=== PATIENT | female | born 1960 | race Caucasian/White ===

== ENCOUNTER → 2017-04-02 | Outpatient (CLI) | payer OTHER ==
[~2017-04-02] MED LIST: ABAC300; ALBU90OI INH; AMOX500 PO; AZIT250 PO; Adipex-P37.5 MG PO; Albuterol17 G1 INH; BENZ100A PO; BUPR75 PO; Bactrim Ds Tab1 EACH PO; Benadryl 50 mg50 MG PO; CEPH500 PO; CHLO25B PO; Cipro500 MG PO; EQUATE; FAMO20 PO; FERR325 PO; FLUO20 PO; Ferrous Sulfat324 MG PO; GUAI600T33 PO; HYDACE5 PO; Hair, Skin & N1 EACH PO; Hydrochlorothia25 MG PO; LAMO100; LITH300ER PO; MOMENI; Monodox100 MG PO; Naprosyn500 MG PO; Norco 5-325 Ta1 EACH PO; OMEP20ER PO; ONDA4ODT MM; OTC SINUS MED; Omeprazole20 M1 PO; PENVK250 PO; PROCODE120 PO; Percocet 5-3251 EACH PO; Prednisone20 MG PO; Prilosec Otc20 MG PO; Prozac20 MG PO; Pyridium200 MG PO; SPACE CHAMBER1 EACH MC; Silvadene20 GM TOP; TOPI25 PO; TRAM50 PO; TRAZ100 PO; TRAZ150T57 PO; TRAZ50 PO; Tamiflu75 MG PO; Tussionex Penn480 ML PO; VITS AND SUPPS; Zithromax250 MG PO; [UNRECOGNIZED DRUG - REMARK]
[2017-04-02 13:34] LABS: Source, Urine Clean Catch
[2017-04-02 16:35] LABS: Appearance, Urine Clear (Clear); Bilirubin, Urine Neg (Neg); Blood, Urine 1+ (Neg); Color, Urine Yellow (P-Yellow); Glucose Qualitative, Urine Neg (Neg); Ketones, Urine Neg (Neg); Leukocyte Esterase, Urine Neg (Neg); Nitrite, Urine Neg (Neg); Protein, Urine Neg (Neg); Urobilinogen, Urine NORM (Normal)
[2017-04-02 16:54] LABS: Bacteria Few /hpf; Squamous Epithelial Cells Few /hpf (Few); White Blood Cells, Urine 0-2 /hpf (0-5)
== END ==
LOC: LAB 13:31
PROVIDERS: Nurse Practitioner Family
DX: R30.0 Dysuria (principal)
CPT/HCPCS: 81001

== ENCOUNTER 2017-04-20 18:21 | Emergency (ER) | payer OTHER ==
[~2017-04-20] VITALS: Ht 162.6 cm; Wt 105.2 kg
[~2017-04-20 18:21] MED LIST changes: -CHLO25B PO; -EQUATE; -Ferrous Sulfat324 MG PO; -LAMO100; -ONDA4ODT MM; -Omeprazole20 M1 PO; -Prozac20 MG PO; -TOPI25 PO; -TRAZ100 PO
[2017-04-20 21:40] LABS: Influenza A Positive (NEGATIVE); Influenza B Negative (NEGATIVE)
[2017-04-20] MEDS ORDERED: Tamiflu75 MG PO (22:03)
[2018-02-17] MEDS ORDERED: TRAZ100 PO (07:18)
[2018-02-17] MEDS ORDERED: ONDA4ODT MM (07:38)
== END 2017-04-20 22:09 | disposition home or self-care (01) ==
LOC: ER 18:21
PROVIDERS: Physician Assistant
DX: J10.1 Influenza due to other identified influenza virus with other respiratory manifestations (principal); Z79.899 Other long term (current) drug therapy; F17.200 Nicotine dependence, unspecified, uncomplicated
CPT/HCPCS: 87804; 99283

== ENCOUNTER → 2017-05-02 | Outpatient (CLI) | payer OTHER ==
[2017-05-02 13:08] LABS: Influenza A Negative (NEGATIVE); Influenza B Negative (NEGATIVE)
== END ==
LOC: LAB 08:15 → LAB SHORT 08:15
PROVIDERS: Nurse Practitioner Family
DX: J09.X2 Influenza due to identified novel influenza A virus with other respiratory manifestations (principal); R06.00 Dyspnea, unspecified
CPT/HCPCS: 87804

== ENCOUNTER 2017-11-25 13:26 | Observation (INO) | payer OTHER ==
[~2017-11-25] VITALS: Ht 162.6 cm; Wt 108.9 kg
[2017-11-25] MEDS ORDERED: Ferrous Sulfat324 MG PO (13:48)
[2017-11-25] MEDS ORDERED: LAMO100 (13:49)
[2017-11-25] MEDS ORDERED: Omeprazole20 M1 PO (13:49)
[2017-11-25] MEDS ORDERED: CHLO25B PO (13:49)
[2017-11-25] MEDS ORDERED: Prozac20 MG PO (13:49)
[2017-11-25] MEDS ORDERED: TOPI25 PO (13:49)
[2017-11-25] MEDS ORDERED: EQUATE (13:50)
[2017-11-25 15:06] LABS: Source, Urine Clean Catch
[2017-11-25 15:11] LABS: Appearance, Urine Turbid (Clear); Bilirubin, Urine Neg (Neg); Blood, Urine 2+ (Neg); Color, Urine Yellow (P-Yellow); Glucose Qualitative, Urine Neg (Neg); Ketones, Urine Neg (Neg); Leukocyte Esterase, Urine 1+ (Neg); Nitrite, Urine Neg (Neg); Protein, Urine Neg (Neg); Urobilinogen, Urine NORM (Normal)
[2017-11-25 15:13] LABS: BASOPHILS ABSOLUTE AUTO 0.06 K/mm3 (0.00-0.23); BASOPHILS PERCENT AUTO 0 % (0-2); EOSINOPHILS ABSOLUTE AUTO 0.24 K/mm3 (0.00-0.68); EOSINOPHILS PERCENT AUTO 2 % (0-6); Hematocrit 44.8 % (33.0-51.0); Hemoglobin 14.8 g/dL (11.5-16.0); IMMATURE GRAN ABSOLUTE AUTO 0.09 K/mm3 (0.00-0.10); IMMATURE GRAN PERCENT AUTO 1 % (0-1); LYMPHOCYTES ABSOLUTE AUTO 2.62 K/mm3 (0.84-5.20); LYMPHOCYTES PERCENT AUTO 20 % (21-46); MONOCYTES ABSOLUTE AUTO 0.88 K/mm3 (0.16-1.47); MONOCYTES PERCENT AUTO 7 % (4-13); Mean Corpuscular HGB 29.2 pg (26.0-34.0); Mean Corpuscular Volume 88 fL (80-100); Mean Platelet Volume 11.1 fL (9.1-12.4); NEUTROPHILS ABSOLUTE AUTO 9.55 K/mm3 (1.96-9.15); NEUTROPHILS PERCENT AUTO 71 % (41-73); Platelet Count 260 K/mm3 (150-400); RDW Coefficient Variation 13.6 % (11.7-14.2); Red Blood Cell Count 5.07 M/mm3 (3.80-5.20); White Blood Cell Count 13.44 K/mm3 (4.00-11.30)
[2017-11-25 15:32] LABS: Alanine Aminotransfer (ALT/SGP 27 U/L (12-78); Albumin, Blood 3.4 g/dL (3.4-5.0); Albumin/Globulin Ratio 0.9 (0.8-1.8); Alk Phos 72 U/L (50-136); Anion Gap 8 mmol/L (6-16); Aspartate Aminotrans (AST/SGOT 20 U/L (12-37); Bilirubin, Total 0.2 mg/dL (0.1-1.0); Blood Urea Nitrogen 21 mg/dL (8-24); Bun/Creatinine Ratio 26.5 (12.0-20.0); CO2, Blood 28 mmol/L (21-32); Calcium, Blood 8.6 mg/dL (8.5-10.1); Chloride, Blood 106 mmol/L (98-108); Creatinine, Blood 0.79 mg/dL (0.40-1.00); Ethanol (Alcohol), Blood, Med <3 mg/dL; Globulin, Blood 3.6 g/dL (2.2-4.0); Glomerular Filtration Rate >60 (60-); Glucose, Blood 114 mg/dL (70-99); Potassium, Blood 3.1 mmol/L (3.5-5.5); Salicylate <1.7 mg/dL (2.8-20.0); Sodium, Blood 142 mmol/L (136-145); Thyroxine (T4) 10.7 ug/dL (4.8-13.9)
[2017-11-25 15:38] LABS: Bacteria Many /hpf; Squamous Epithelial Cells Many /hpf (Few)
[2017-11-25 15:42] LABS: Acetaminophen, Random <2.0 ug/mL (10.0-30.0)
[2017-11-25 16:00] LABS: U Amphetamine Screen Not Detected; U Barbituate Screen Not Detected; U Benzodiazapine Screen DETECTED; U Buprenorphine Screen Not Detected; U Cannabinoids Screen DETECTED; U Cocaine Screen Not Detected; U Methadone Screen Not Detected; U Methamphetamine Screen Not Detected; U Opiates Screen Not Detected; U Oxycodone Screen Not Detected; U Phencyclidine Screen Not Detected; U Propoxyphene Screen Not Detected
[2017-11-27] MEDS ORDERED: CEPH500 PO (11:23)
== END 2017-11-27 11:45 | disposition home or self-care (01) ==
LOC: ER 13:26 → EOR 13:27
PROVIDERS: Emergency Medicine
DX: R45.851 Suicidal ideations (principal); N39.0 Urinary tract infection, site not specified; E87.6 Hypokalemia; F43.10 Post-traumatic stress disorder, unspecified; F32.9 Major depressive disorder, single episode, unspecified; D64.9 Anemia, unspecified; F17.210 Nicotine dependence, cigarettes, uncomplicated; Z95.1 Presence of aortocoronary bypass graft; Z79.899 Other long term (current) drug therapy
CPT/HCPCS: 36415; 80053; 81001; 81025; 84436; 84443; 85025; 87086; 93005; 93010; 99285-25; G0378; G0480; Q3014

== ENCOUNTER 2018-08-27 03:30 | Emergency (ER) | payer OTHER ==
[~2018-08-27] VITALS: Ht 162.6 cm; Wt 104.3 kg
[~2018-08-27 03:30] MED LIST changes: +CHLO25B PO; +EQUATE; +Ferrous Sulfat324 MG PO; +LAMO100; +ONDA4ODT MM; +Omeprazole20 M1 PO; +Prozac20 MG PO; +TOPI25 PO; +TRAZ100 PO
== END 2018-08-27 05:02 | disposition home or self-care (01) ==
LOC: ER 03:30
DX: S16.1XXA Strain of muscle, fascia and tendon at neck level, initial encounter (principal); S00.83XA Contusion of other part of head, initial encounter; S40.011A Contusion of right shoulder, initial encounter; W10.9XXA Fall (on) (from) unspecified stairs and steps, initial encounter; D64.9 Anemia, unspecified; F43.10 Post-traumatic stress disorder, unspecified; F32.9 Major depressive disorder, single episode, unspecified; F17.210 Nicotine dependence, cigarettes, uncomplicated; Z79.899 Other long term (current) drug therapy
CPT/HCPCS: 70450; 72125; 73030; 99284-25

== ENCOUNTER → 2018-09-26 | Outpatient (CLI) | payer OTHER ==
[~2018-09-26] MED LIST changes: +LIDO700A20 TOP; +Neurontin 100100 MG; +Robaxin-750750 MG PO; +Robaxin750 MG
[2018-09-26 11:31] LABS: Appearance, Urine Clear (Clear); Bilirubin, Urine Neg (Neg); Blood, Urine 2+ (Neg); Color, Urine Yellow (P-Yellow); Glucose Qualitative, Urine Neg (Neg); Ketones, Urine Neg (Neg); Leukocyte Esterase, Urine Neg (Neg); Nitrite, Urine Neg (Neg); Protein, Urine Neg (Neg); Specific Gravity, Urine 1.025 (1.003-1.022); Urobilinogen, Urine NORM (Normal)
[2018-09-26 11:40] LABS: Bacteria Rare /hpf; Squamous Epithelial Cells Few /hpf (Few); White Blood Cells, Urine 0-2 /hpf (0-5)
== END | disposition home or self-care (01) ==
LOC: LAB 11:11 → LAB SHORT 11:11
PROVIDERS: Nurse Practitioner Family
DX: R31.29 Other microscopic hematuria (principal)
CPT/HCPCS: 81001

== ENCOUNTER 2018-10-19 02:51 | Emergency (ER) | payer OTHER ==
[~2018-10-19 02:51] MED LIST changes: -LIDO700A20 TOP; -Neurontin 100100 MG; -Robaxin-750750 MG PO; -Robaxin750 MG
== END 2018-10-19 04:12 | disposition left against medical advice (07) ==
LOC: ER 02:51
DX: Z53.21 Procedure and treatment not carried out due to patient leaving prior to being seen by health care provider (principal)

== ENCOUNTER → 2018-10-27 | Outpatient (CLI) | payer OTHER ==
[~2018-10-27] MED LIST changes: +LIDO700A20 TOP; +Neurontin 100100 MG; +Robaxin-750750 MG PO; +Robaxin750 MG
[2018-10-27 19:26] LABS: BASOPHILS ABSOLUTE AUTO 0.04 K/mm3 (0.00-0.23); BASOPHILS PERCENT AUTO 0 % (0-2); EOSINOPHILS ABSOLUTE AUTO 0.35 K/mm3 (0.00-0.68); EOSINOPHILS PERCENT AUTO 3 % (0-6); Hemoglobin 13.6 g/dL (11.5-16.0); IMMATURE GRAN ABSOLUTE AUTO 0.05 K/mm3 (0.00-0.10); IMMATURE GRAN PERCENT AUTO 0 % (0-1); LYMPHOCYTES ABSOLUTE AUTO 2.63 K/mm3 (0.84-5.20); LYMPHOCYTES PERCENT AUTO 23 % (21-46); MONOCYTES ABSOLUTE AUTO 0.95 K/mm3 (0.16-1.47); MONOCYTES PERCENT AUTO 8 % (4-13); Mean Corpuscular HGB 28.5 pg (26.0-34.0); Mean Corpuscular HGB Conc 31.6 g/dL (31.5-36.5); NEUTROPHILS ABSOLUTE AUTO 7.44 K/mm3 (1.96-9.15); NEUTROPHILS PERCENT AUTO 65 % (41-73); Platelet Count 280 K/mm3 (150-400); RDW Coefficient Variation 14.7 % (11.7-14.2); RDW Standard Deviation 48.3 fL (35.1-46.3); Red Blood Cell Count 4.77 M/mm3 (3.80-5.20); White Blood Cell Count 11.46 K/mm3 (4.00-11.30)
[2018-10-27 19:28] LABS: Mean Corpuscular Volume 90 fL (80-100)
== END | disposition home or self-care (01) ==
LOC: LAB SHORT 19:10 → LAB 19:10
PROVIDERS: Family Medicine
DX: R10.30 Lower abdominal pain, unspecified (principal); R31.9 Hematuria, unspecified
CPT/HCPCS: 85025; 87086

== ENCOUNTER → 2018-12-14 | Outpatient (CLI) | payer OTHER ==
[2018-12-14 14:32] LABS: BASOPHILS ABSOLUTE AUTO 0.04 K/mm3 (0.00-0.23); BASOPHILS PERCENT AUTO 0 % (0-2); EOSINOPHILS ABSOLUTE AUTO 0.28 K/mm3 (0.00-0.68); EOSINOPHILS PERCENT AUTO 3 % (0-6); Hematocrit 41.1 % (33.0-51.0); IMMATURE GRAN ABSOLUTE AUTO 0.04 K/mm3 (0.00-0.10); IMMATURE GRAN PERCENT AUTO 0 % (0-1); LYMPHOCYTES ABSOLUTE AUTO 1.83 K/mm3 (0.84-5.20); LYMPHOCYTES PERCENT AUTO 17 % (21-46); MONOCYTES ABSOLUTE AUTO 0.72 K/mm3 (0.16-1.47); MONOCYTES PERCENT AUTO 7 % (4-13); Mean Corpuscular HGB 28.1 pg (26.0-34.0); Mean Corpuscular HGB Conc 31.6 g/dL (31.5-36.5); Mean Corpuscular Volume 89 fL (80-100); Mean Platelet Volume 11.8 fL (9.1-12.4); NEUTROPHILS ABSOLUTE AUTO 8.19 K/mm3 (1.96-9.15); NEUTROPHILS PERCENT AUTO 74 % (41-73); Platelet Count 266 K/mm3 (150-400); RDW Coefficient Variation 15.1 % (11.7-14.2); Red Blood Cell Count 4.63 M/mm3 (3.80-5.20)
[2018-12-14 14:36] LABS: Bun/Creatinine Ratio 16.5 (12.0-20.0); Creatinine, Blood 1.03 mg/dL (0.40-1.00); Potassium, Blood 4.2 mmol/L (3.5-5.5)
== END | disposition home or self-care (01) ==
LOC: LAB SHORT 14:26 → LAB EV 14:26
PROVIDERS: Physician Assistant Surgical
DX: R06.02 Shortness of breath (principal); R06.00 Dyspnea, unspecified
CPT/HCPCS: 80048; 83880; 85025

== ENCOUNTER → 2018-12-18 | Outpatient (CLI) | payer OTHER ==
[2018-12-18 11:58] LABS: BASOPHILS ABSOLUTE AUTO 0.04 K/mm3 (0.00-0.23); BASOPHILS PERCENT AUTO 0 % (0-2); EOSINOPHILS ABSOLUTE AUTO 0.16 K/mm3 (0.00-0.68); EOSINOPHILS PERCENT AUTO 2 % (0-6); Hematocrit 39.5 % (33.0-51.0); Hemoglobin 12.7 g/dL (11.5-16.0); IMMATURE GRAN ABSOLUTE AUTO 0.05 K/mm3 (0.00-0.10); IMMATURE GRAN PERCENT AUTO 1 % (0-1); LYMPHOCYTES ABSOLUTE AUTO 1.05 K/mm3 (0.84-5.20); LYMPHOCYTES PERCENT AUTO 10 % (21-46); MONOCYTES ABSOLUTE AUTO 0.36 K/mm3 (0.16-1.47); MONOCYTES PERCENT AUTO 3 % (4-13); Mean Corpuscular HGB 28.2 pg (26.0-34.0); Mean Corpuscular HGB Conc 32.2 g/dL (31.5-36.5); Mean Corpuscular Volume 88 fL (80-100); Mean Platelet Volume 11.3 fL (9.1-12.4); NEUTROPHILS ABSOLUTE AUTO 8.88 K/mm3 (1.96-9.15); NEUTROPHILS PERCENT AUTO 84 % (41-73); Platelet Count 271 K/mm3 (150-400); RDW Coefficient Variation 14.9 % (11.7-14.2); Red Blood Cell Count 4.51 M/mm3 (3.80-5.20); White Blood Cell Count 10.54 K/mm3 (4.00-11.30)
[2018-12-18 12:02] LABS: Anion Gap 7 mmol/L (6-16); Blood Urea Nitrogen 19 mg/dL (8-24); Bun/Creatinine Ratio 21.8 (12.0-20.0); CO2, Blood 27 mmol/L (21-32); Calcium, Blood 8.4 mg/dL (8.5-10.1); Chloride, Blood 108 mmol/L (98-108); Creatinine, Blood 0.87 mg/dL (0.40-1.00); Glomerular Filtration Rate >60 (60-); Glucose, Blood 119 mg/dL (70-99); Potassium, Blood 3.8 mmol/L (3.5-5.5); Sodium, Blood 142 mmol/L (136-145)
== END | disposition home or self-care (01) ==
LOC: LAB SHORT 11:53 → LAB EV 11:53
PROVIDERS: Physician Assistant Surgical
DX: R06.02 Shortness of breath (principal)
CPT/HCPCS: 80048; 85025; 85379

== ENCOUNTER 2019-01-06 20:28 | Emergency (ER) | payer OTHER ==
[~2019-01-06] VITALS: Ht 162.6 cm; Wt 108.0 kg
[~2019-01-06 20:28] MED LIST changes: -LIDO700A20 TOP; -Neurontin 100100 MG; -Robaxin-750750 MG PO; -Robaxin750 MG
[2019-01-06 22:52] LABS: Source, Urine Clean Catch
[2019-01-06 22:53] LABS: Bilirubin, Urine Neg (Neg); Blood, Urine Neg (Neg); Glucose Qualitative, Urine Neg (Neg); Ketones, Urine 1+ (Neg); Leukocyte Esterase, Urine 1+ (Neg); Nitrite, Urine Neg (Neg); Protein, Urine 1+ (Neg); Specific Gravity, Urine 1.025 (1.003-1.022); Urobilinogen, Urine 1+ (Normal)
[2019-01-06 22:54] LABS: Appearance, Urine Hazy (Clear); Color, Urine Yellow (P-Yellow)
[2019-01-06 23:04] LABS: Bacteria Few /hpf; Mucus Light (0-Heavy); Red Blood Cells, Urine 0-2 /hpf (0-2); Squamous Epithelial Cells Mod /hpf (Few)
[2019-01-06] MEDS ORDERED: Robaxin-750750 MG PO (23:31)
[2019-01-06] MEDS ORDERED: LIDO700A20 TOP (23:34)
== END 2019-01-06 23:40 | disposition home or self-care (01) ==
LOC: ER 20:28
PROVIDERS: Physician Assistant
DX: M54.16 Radiculopathy, lumbar region (principal); Z79.899 Other long term (current) drug therapy; D64.9 Anemia, unspecified; F32.9 Major depressive disorder, single episode, unspecified; F43.10 Post-traumatic stress disorder, unspecified; F17.200 Nicotine dependence, unspecified, uncomplicated
CPT/HCPCS: 72100; 81001; 87086; 99283-25; J1100

== ENCOUNTER 2019-01-09 14:22 | Emergency (ER) | payer OTHER ==
[~2019-01-09] VITALS: Ht 162.6 cm; Wt 108.9 kg
[~2019-01-09 14:22] MED LIST changes: +LIDO700A20 TOP; +Robaxin-750750 MG PO
[2019-01-09] MEDS ORDERED: Neurontin 100100 MG (14:46)
[2019-01-09] MEDS ORDERED: Robaxin750 MG (14:46)
[2019-01-09] MEDS ORDERED: Norco 5-325 Ta1 EACH PO (14:51)
== END 2019-01-09 14:55 | disposition home or self-care (01) ==
LOC: ER 14:22
DX: M54.41 Lumbago with sciatica, right side (principal); F32.9 Major depressive disorder, single episode, unspecified; F17.210 Nicotine dependence, cigarettes, uncomplicated; Z79.899 Other long term (current) drug therapy
CPT/HCPCS: 99282

== ENCOUNTER 2019-02-17 06:53 | Emergency (ER) | payer OTHER ==
[~2019-02-17] VITALS: Ht 162.6 cm; Wt 108.9 kg
[~2019-02-17 06:53] MED LIST changes: +Neurontin 100100 MG; +Robaxin750 MG
[2019-02-17] MEDS ORDERED: VITAMIN D31000 UNI3 PO (07:16)
[2019-02-17 07:56] LABS: BASOPHILS ABSOLUTE AUTO 0.05 K/mm3 (0.00-0.23); BASOPHILS PERCENT AUTO 1 % (0-2); EOSINOPHILS ABSOLUTE AUTO 0.27 K/mm3 (0.00-0.68); EOSINOPHILS PERCENT AUTO 3 % (0-6); Hemoglobin 10.9 g/dL (11.5-16.0); IMMATURE GRAN ABSOLUTE AUTO 0.03 K/mm3 (0.00-0.10); IMMATURE GRAN PERCENT AUTO 0 % (0-1); LYMPHOCYTES PERCENT AUTO 16 % (21-46); MONOCYTES ABSOLUTE AUTO 0.59 K/mm3 (0.16-1.47); MONOCYTES PERCENT AUTO 6 % (4-13); Mean Corpuscular HGB Conc 29.5 g/dL (31.5-36.5); Mean Corpuscular Volume 85 fL (80-100); Mean Platelet Volume 11.4 fL (9.1-12.4); NEUTROPHILS PERCENT AUTO 75 % (41-73); Platelet Count 293 K/mm3 (150-400); RDW Coefficient Variation 14.3 % (11.7-14.2); RDW Standard Deviation 44.5 fL (35.1-46.3); Red Blood Cell Count 4.36 M/mm3 (3.80-5.20); White Blood Cell Count 9.64 K/mm3 (4.00-11.30)
[2019-02-17 08:14] LABS: Alanine Aminotransfer (ALT/SGP 22 U/L (12-78); Albumin, Blood 3.3 g/dL (3.4-5.0); Albumin/Globulin Ratio 1.1 (0.8-1.8); Alk Phos 63 U/L (50-136); Anion Gap 6 mmol/L (6-16); Aspartate Aminotrans (AST/SGOT 15 U/L (12-37); Bilirubin, Total 0.2 mg/dL (0.1-1.0); Blood Urea Nitrogen 22 mg/dL (8-24); Bun/Creatinine Ratio 31.7 (12.0-20.0); CO2, Blood 27 mmol/L (21-32); Calcium, Blood 8.9 mg/dL (8.5-10.1); Chloride, Blood 110 mmol/L (98-108); Creatinine, Blood 0.69 mg/dL (0.40-1.00); Globulin, Blood 3.1 g/dL (2.2-4.0); Glomerular Filtration Rate >60 (60-); Glucose, Blood 94 mg/dL (70-99); Potassium, Blood 4.1 mmol/L (3.5-5.5); Sodium, Blood 143 mmol/L (136-145); Total Protein, Blood 6.4 g/dL (6.4-8.2)
[2019-02-17 08:22] LABS: Source, Urine Clean Catch
[2019-02-17 08:26] LABS: Bilirubin, Urine Neg (Neg); Blood, Urine Neg (Neg); Glucose Qualitative, Urine Neg (Neg); Ketones, Urine Neg (Neg); Leukocyte Esterase, Urine Neg (Neg); Nitrite, Urine Neg (Neg); Protein, Urine Neg (Neg); Urobilinogen, Urine NORM (Normal); pH, Urine 6.5 (5.0-8.0)
[2019-02-17 08:37] LABS: Appearance, Urine Clear (Clear); Color, Urine Yellow (P-Yellow)
[2019-02-17] MEDS ORDERED: ONDA4ODT MM (09:31)
[2019-02-17] MEDS ORDERED: MOTION RELIEF25 MG PO (09:31)
== END 2019-02-17 10:00 | disposition home or self-care (01) ==
LOC: ER 06:53
PROVIDERS: Emergency Medicine
DX: H81.10 Benign paroxysmal vertigo, unspecified ear (principal); H61.23 Impacted cerumen, bilateral; Z79.899 Other long term (current) drug therapy
CPT/HCPCS: 36415; 70450; 80053; 81003; 85025; 93005; 93010; 96374; 99284-25; J2405

== ENCOUNTER 2019-04-06 13:04 | Emergency (ER) | payer OTHER ==
[~2019-04-06] VITALS: Ht 162.6 cm; Wt 108.4 kg
[~2019-04-06 13:04] MED LIST changes: +MOTION RELIEF25 MG PO; +VITAMIN D31000 UNI3 PO
[2019-04-06 15:23] LABS: Source, Urine Clean Catch
[2019-04-06 15:29] LABS: Bilirubin, Urine Neg (Neg); Blood, Urine 2+ (Neg); Glucose Qualitative, Urine Neg (Neg); Ketones, Urine Neg (Neg); Leukocyte Esterase, Urine Neg (Neg); Nitrite, Urine Neg (Neg); Protein, Urine Neg (Neg); Specific Gravity, Urine 1.025 (1.003-1.022); Urobilinogen, Urine NORM (Normal)
[2019-04-06 15:29] LABS: BASOPHILS ABSOLUTE AUTO 0.04 K/mm3 (0.00-0.23); BASOPHILS PERCENT AUTO 0 % (0-2); EOSINOPHILS ABSOLUTE AUTO 0.32 K/mm3 (0.00-0.68); EOSINOPHILS PERCENT AUTO 2 % (0-6); Hematocrit 41.8 % (33.0-51.0); Hemoglobin 12.2 g/dL (11.5-16.0); IMMATURE GRAN ABSOLUTE AUTO 0.07 K/mm3 (0.00-0.10); IMMATURE GRAN PERCENT AUTO 1 % (0-1); LYMPHOCYTES ABSOLUTE AUTO 1.38 K/mm3 (0.84-5.20); LYMPHOCYTES PERCENT AUTO 10 % (21-46); MONOCYTES ABSOLUTE AUTO 0.92 K/mm3 (0.16-1.47); MONOCYTES PERCENT AUTO 7 % (4-13); Mean Corpuscular HGB 25.9 pg (26.0-34.0); Mean Corpuscular HGB Conc 29.2 g/dL (31.5-36.5); Mean Corpuscular Volume 89 fL (80-100); Mean Platelet Volume 11.8 fL (9.1-12.4); NEUTROPHILS PERCENT AUTO 80 % (41-73); Platelet Count 286 K/mm3 (150-400); RDW Coefficient Variation 18.1 % (11.7-14.2); RDW Standard Deviation 58.8 fL (35.1-46.3); Red Blood Cell Count 4.71 M/mm3 (3.80-5.20); White Blood Cell Count 13.63 K/mm3 (4.00-11.30)
[2019-04-06 15:45] LABS: Appearance, Urine Clear (Clear); Color, Urine Yellow (P-Yellow); U Amphetamine Screen Not Detected; U Barbituate Screen Not Detected; U Benzodiazapine Screen Not Detected; U Buprenorphine Screen Not Detected; U Cannabinoids Screen Not Detected; U Cocaine Screen Not Detected; U Methadone Screen Not Detected; U Methamphetamine Screen DETECTED; U Opiates Screen Not Detected; U Oxycodone Screen Not Detected; U Phencyclidine Screen Not Detected; U Propoxyphene Screen Not Detected
[2019-04-06 15:46] LABS: Acetaminophen, Random <2.0 ug/mL (10.0-30.0); Alanine Aminotransfer (ALT/SGP 24 U/L (12-78); Albumin, Blood 3.4 g/dL (3.4-5.0); Albumin/Globulin Ratio 1.1 (0.8-1.8); Alk Phos 74 U/L (50-136); Anion Gap 7 mmol/L (6-16); Aspartate Aminotrans (AST/SGOT 12 U/L (12-37); Bilirubin, Total 0.2 mg/dL (0.1-1.0); Blood Urea Nitrogen 16 mg/dL (8-24); Bun/Creatinine Ratio 24.1 (12.0-20.0); CO2, Blood 25 mmol/L (21-32); Calcium, Blood 8.8 mg/dL (8.5-10.1); Chloride, Blood 113 mmol/L (98-108); Creatinine, Blood 0.66 mg/dL (0.40-1.00); Ethanol (Alcohol), Blood, Med <3 mg/dL; Globulin, Blood 3.2 g/dL (2.2-4.0); Glomerular Filtration Rate >60 (60-); Glucose, Blood 107 mg/dL (70-99); Potassium, Blood 3.6 mmol/L (3.5-5.5); Salicylate <1.7 mg/dL (2.8-20.0); Sodium, Blood 145 mmol/L (136-145); Thyroxine (T4) 11.1 ug/dL (4.8-13.9); Total Protein, Blood 6.6 g/dL (6.4-8.2)
[2019-04-06 15:46] LABS: Bacteria Few /hpf; Squamous Epithelial Cells Few /hpf (Few); White Blood Cells, Urine 0-2 /hpf (0-5)
== END 2019-04-06 15:55 | disposition home or self-care (01) ==
LOC: ER 13:04
PROVIDERS: Emergency Medicine
DX: F32.9 Major depressive disorder, single episode, unspecified (principal); G89.29 Other chronic pain; F43.10 Post-traumatic stress disorder, unspecified; Z86.19 Personal history of other infectious and parasitic diseases; Z87.891 Personal history of nicotine dependence
CPT/HCPCS: 36415; 80053; 81001; 84436; 84443; 85025; 99285; G0480

== ENCOUNTER 2019-04-08 11:48 | Emergency (ER) | payer OTHER ==
[~2019-04-08] VITALS: Ht 162.6 cm; Wt 108.4 kg
[2019-04-08 13:18] LABS: BASOPHILS ABSOLUTE AUTO 0.06 K/mm3 (0.00-0.23); BASOPHILS PERCENT AUTO 1 % (0-2); EOSINOPHILS ABSOLUTE AUTO 0.31 K/mm3 (0.00-0.68); EOSINOPHILS PERCENT AUTO 3 % (0-6); Hematocrit 41.6 % (33.0-51.0); Hemoglobin 12.1 g/dL (11.5-16.0); IMMATURE GRAN ABSOLUTE AUTO 0.04 K/mm3 (0.00-0.10); IMMATURE GRAN PERCENT AUTO 0 % (0-1); LYMPHOCYTES ABSOLUTE AUTO 1.21 K/mm3 (0.84-5.20); LYMPHOCYTES PERCENT AUTO 12 % (21-46); MONOCYTES ABSOLUTE AUTO 0.56 K/mm3 (0.16-1.47); MONOCYTES PERCENT AUTO 5 % (4-13); Mean Corpuscular HGB 25.7 pg (26.0-34.0); Mean Corpuscular HGB Conc 29.1 g/dL (31.5-36.5); Mean Corpuscular Volume 89 fL (80-100); Mean Platelet Volume 12.2 fL (9.1-12.4); NEUTROPHILS ABSOLUTE AUTO 8.32 K/mm3 (1.96-9.15); NEUTROPHILS PERCENT AUTO 79 % (41-73); Platelet Count 270 K/mm3 (150-400); RDW Coefficient Variation 18.1 % (11.7-14.2); RDW Standard Deviation 59.1 fL (35.1-46.3)
[2019-04-08 13:45] LABS: Alanine Aminotransfer (ALT/SGP 25 U/L (12-78); Albumin, Blood 3.4 g/dL (3.4-5.0); Albumin/Globulin Ratio 1.1 (0.8-1.8); Alk Phos 75 U/L (50-136); Anion Gap 5 mmol/L (6-16); Aspartate Aminotrans (AST/SGOT 12 U/L (12-37); Bilirubin, Total 0.3 mg/dL (0.1-1.0); Blood Urea Nitrogen 15 mg/dL (8-24); Bun/Creatinine Ratio 22.7 (12.0-20.0); CO2, Blood 28 mmol/L (21-32); Calcium, Blood 9.1 mg/dL (8.5-10.1); Chloride, Blood 110 mmol/L (98-108); Creatinine, Blood 0.66 mg/dL (0.40-1.00); Glomerular Filtration Rate >60 (60-); Glucose, Blood 83 mg/dL (70-99); Potassium, Blood 4.1 mmol/L (3.5-5.5); Sodium, Blood 143 mmol/L (136-145); Total Protein, Blood 6.4 g/dL (6.4-8.2); Troponin I <0.015 ng/mL (0.000-0.040)
[2019-04-08] MEDS ORDERED: FERSU300 (13:48)
[2019-04-08] MEDS ORDERED: Prednisone20 MG PO (15:50)
== END 2019-04-08 15:55 | disposition home or self-care (01) ==
LOC: ER 11:48
PROVIDERS: Physician Assistant
DX: J20.9 Acute bronchitis, unspecified (principal); Z79.899 Other long term (current) drug therapy; F43.10 Post-traumatic stress disorder, unspecified; D64.9 Anemia, unspecified; F17.200 Nicotine dependence, unspecified, uncomplicated
CPT/HCPCS: 36415; 71046; 80053; 84484; 85025; 93005; 93010; 94640; 96361; 96374; 99284-25; J2405; J2930; J7030

== ENCOUNTER 2019-05-26 11:22 | Day surgery (SDC) | payer OTHER ==
[~2019-05-26 11:22] MED LIST changes: +ALTERA NEBULIZ1 EACH INH; +ALTERA NEBULIZ1 EACH MC; +Augmentin 875-1 EACH PO; +Duoneb 2.5-0.5 M3 ML INH; +FERSU300; +[UNRECOGNIZED DRUG - OTHER] INH
[2019-05-26] MEDS ORDERED: ABILIFY5 MG (12:29)
== END 2019-05-26 16:01 | disposition home or self-care (01) ==
LOC: ATC 11:22
DX: D50.9 Iron deficiency anemia, unspecified (principal); E78.5 Hyperlipidemia, unspecified; Z88.8 Allergy status to other drugs, medicaments and biological substances; Z79.899 Other long term (current) drug therapy

== ENCOUNTER 2019-06-18 14:19 | Observation (INO) | payer OTHER ==
[~2019-06-18] VITALS: Ht 162.6 cm; Wt 108.4 kg
[~2019-06-18 14:19] MED LIST changes: +ABILIFY5 MG; +VENLAFAXINE HC225 MG PO
[2019-06-18 15:19] LABS: Source, Urine Clean Catch
[2019-06-18 15:29] LABS: Bilirubin, Urine Neg (Neg); Blood, Urine 1+ (Neg); Glucose Qualitative, Urine Neg (Neg); Ketones, Urine Neg (Neg); Leukocyte Esterase, Urine Neg (Neg); Nitrite, Urine Neg (Neg); Protein, Urine Neg (Neg); Specific Gravity, Urine 1.015 (1.003-1.022); Urobilinogen, Urine NORM (Normal)
[2019-06-18 15:39] LABS: Appearance, Urine Clear (Clear); Color, Urine Pale Yellow (P-Yellow)
[2019-06-18 15:40] LABS: Bacteria Rare /hpf; Red Blood Cells, Urine 0-2 /hpf (0-2); Squamous Epithelial Cells Few /hpf (Few); White Blood Cells, Urine 0-2 /hpf (0-5)
[2019-06-18 16:22] LABS: U Amphetamine Screen Not Detected; U Barbituate Screen Not Detected; U Methamphetamine Screen Not Detected
[2019-06-18 16:23] LABS: U Benzodiazapine Screen Not Detected; U Buprenorphine Screen Not Detected; U Cannabinoids Screen Not Detected; U Cocaine Screen Not Detected; U Methadone Screen Not Detected; U Opiates Screen Not Detected; U Oxycodone Screen Not Detected; U Phencyclidine Screen Not Detected; U Propoxyphene Screen Not Detected
[2019-06-18 16:29] LABS: BASOPHILS ABSOLUTE AUTO 0.06 K/mm3 (0.00-0.23); BASOPHILS PERCENT AUTO 1 % (0-2); EOSINOPHILS ABSOLUTE AUTO 0.31 K/mm3 (0.00-0.68); EOSINOPHILS PERCENT AUTO 4 % (0-6); Hematocrit 35.6 % (33.0-51.0); Hemoglobin 10.9 g/dL (11.5-16.0); IMMATURE GRAN ABSOLUTE AUTO 0.06 K/mm3 (0.00-0.10); IMMATURE GRAN PERCENT AUTO 1 % (0-1); LYMPHOCYTES ABSOLUTE AUTO 2.05 K/mm3 (0.84-5.20); LYMPHOCYTES PERCENT AUTO 23 % (21-46); MONOCYTES ABSOLUTE AUTO 0.53 K/mm3 (0.16-1.47); MONOCYTES PERCENT AUTO 6 % (4-13); Mean Corpuscular HGB 27.9 pg (26.0-34.0); Mean Corpuscular HGB Conc 30.6 g/dL (31.5-36.5); Mean Corpuscular Volume 91 fL (80-100); Mean Platelet Volume 11.7 fL (9.1-12.4); NEUTROPHILS ABSOLUTE AUTO 5.88 K/mm3 (1.96-9.15); NEUTROPHILS PERCENT AUTO 66 % (41-73); Platelet Count 272 K/mm3 (150-400); RDW Coefficient Variation 16.8 % (11.7-14.2); RDW Standard Deviation 56.1 fL (35.1-46.3); Red Blood Cell Count 3.91 M/mm3 (3.80-5.20); White Blood Cell Count 8.89 K/mm3 (4.00-11.30)
[2019-06-18 16:46] LABS: Salicylate 1.7 mg/dL (2.8-20.0)
[2019-06-18 16:47] LABS: Acetaminophen, Random <2.0 ug/mL (10.0-30.0); Alanine Aminotransfer (ALT/SGP 20 U/L (12-78); Albumin/Globulin Ratio 1.1 (0.8-1.8); Alk Phos 67 U/L (50-136); Anion Gap 5 mmol/L (6-16); Aspartate Aminotrans (AST/SGOT 15 U/L (12-37); Bilirubin, Total 0.3 mg/dL (0.1-1.0); Blood Urea Nitrogen 20 mg/dL (8-24); Bun/Creatinine Ratio 29.9 (12.0-20.0); CO2, Blood 28 mmol/L (21-32); Calcium, Blood 9.3 mg/dL (8.5-10.1); Chloride, Blood 109 mmol/L (98-108); Creatinine, Blood 0.67 mg/dL (0.40-1.00); Globulin, Blood 2.7 g/dL (2.2-4.0); Glomerular Filtration Rate >60 (60-); Glucose, Blood 101 mg/dL (70-99); Potassium, Blood 3.8 mmol/L (3.5-5.5); Sodium, Blood 142 mmol/L (136-145); Total Protein, Blood 5.7 g/dL (6.4-8.2)
[2019-06-18 17:03] LABS: Ethanol (Alcohol), Blood, Med <3 mg/dL
== END 2019-06-19 12:50 | disposition home or self-care (01) ==
LOC: ER 14:19 → EOR 14:20
PROVIDERS: Physician Assistant; ADMIT Emergency Medicine
DX: T45.0X2A Poisoning by antiallergic and antiemetic drugs, intentional self-harm, initial encounter (principal); F32.9 Major depressive disorder, single episode, unspecified; F17.210 Nicotine dependence, cigarettes, uncomplicated; Z79.899 Other long term (current) drug therapy
CPT/HCPCS: 36415; 80053; 81001; 85025; 93005; 93010; G0480

== ENCOUNTER 2020-06-26 07:58 | Inpatient (IN) | payer OTHER ==
[~2020-06-26] VITALS: Ht 162.6 cm; Wt 113.8 kg
[2020-06-26] MEDS ORDERED: OMEP20ER PO (08:17)
[2020-06-26] MEDS ORDERED: TRAZ100 PO (08:18)
[2020-06-26 08:54] LABS: BASOPHILS PERCENT AUTO 0 % (0-2); EOSINOPHILS PERCENT AUTO 0 % (0-6); IMMATURE GRAN ABSOLUTE AUTO 0.04 K/mm3 (0.00-0.10); IMMATURE GRAN PERCENT AUTO 1 % (0-1); LYMPHOCYTES ABSOLUTE AUTO 1.03 K/mm3 (0.84-5.20); LYMPHOCYTES PERCENT AUTO 15 % (21-46); MONOCYTES ABSOLUTE AUTO 0.49 K/mm3 (0.16-1.47); MONOCYTES PERCENT AUTO 7 % (4-13); Mean Corpuscular HGB 17.2 pg (26.0-34.0); Mean Corpuscular HGB Conc 24.9 g/dL (31.5-36.5); Mean Corpuscular Volume 69 fL (80-100); NEUTROPHILS ABSOLUTE AUTO 5.46 K/mm3 (1.96-9.15); NEUTROPHILS PERCENT AUTO 78 % (41-73); RDW Coefficient Variation 18.6 % (11.7-14.2); RDW Standard Deviation 46.1 fL (35.1-46.3); Red Blood Cell Count 3.25 M/mm3 (3.80-5.20); White Blood Cell Count 7.02 K/mm3 (4.00-11.30)
[2020-06-26 09:16] LABS: Alanine Aminotransfer (ALT/SGP 18 U/L (12-78); Albumin, Blood 3.2 g/dL (3.4-5.0); Alk Phos 71 U/L (50-136); Anion Gap 5 mmol/L (6-16); Aspartate Aminotrans (AST/SGOT 9 U/L (12-37); Bilirubin, Total 0.3 mg/dL (0.1-1.0); Blood Urea Nitrogen 14 mg/dL (8-24); Bun/Creatinine Ratio 19.2 (12.0-20.0); CO2, Blood 26 mmol/L (21-32); Calcium, Blood 8.7 mg/dL (8.5-10.1); Chloride, Blood 111 mmol/L (98-108); Creatinine, Blood 0.73 mg/dL (0.40-1.00); Globulin, Blood 3.3 g/dL (2.2-4.0); Glomerular Filtration Rate >60 (60-); Glucose, Blood 102 mg/dL (70-99); Sodium, Blood 142 mmol/L (136-145); Total Protein, Blood 6.5 g/dL (6.4-8.2); Troponin I <0.015 ng/mL (0.000-0.040)
[2020-06-26 09:17] LABS: Mean Platelet Volume 12.3 fL (9.1-12.4); Platelet Count 316 K/mm3 (150-400)
[2020-06-26 09:21] LABS: Hematocrit 22.5 % (33.0-51.0); Hemoglobin 5.6 g/dL (11.5-16.0)
[2020-06-26] MEDS ORDERED: ARIPIPRAZOLE15 MG PO (11:36)
[2020-06-26 13:13] LABS: Cholesterol 152 mg/dL (50-200); HDL Cholesterol 38 mg/dL (>39); LDL/HDL RATIO 2.3; Low Density Lipoprotein Chol 86 mg/dL (0-110); Triglycerides 138 mg/dL (30-160); Very Low Density Lipoprot Chol 27 mg/dL (6-32)
[2020-06-26 17:05] LABS: Hematocrit 30.2 % (33.0-51.0)
--- NOTE | 2020-06-26 17:13 | NUR ---
SHIFT SUMMARY PT ARRIVED TO PCU THIS AFTERNOON WITH HER SECOND BLOOD TRANSFUSION RUNNING AND ALMOST COMPLETE. PT ARRIVED ON RA BUT GREW SHORT OF BREATH WHILE WALKING TO THE BATHROOM AND SHE WAS PLACED ON 2L O2 TO MAINTAIN SATURATION AT 92% AND ABOVE. PT DENIES PAIN AT THIS TIME AND REPORTS FEELING WEAK AND FATIGUED. [facility] HAS TRENDED UPWARD WITH THE 2 UNITS TRANSFUSED. PT HAS BEEN ABLE TO TRANSFER SBA TO THE BATHROOM. PT HAS SOME SLIGHT EDEMA BLE AND IS RECEIVING LASIX FOR THE EDEMA. PT HAS GOOD FAMILY SUPPORT AND LIVES WITH HER DAUGHTER AND SON IN [place]. PT IS RESTING IN BED AND VISITING WITH FAMILY AT THIS TIME.
[2020-06-26 19:46] LABS: Percent Saturation 34.1 % (15.0-50.0)
[2020-06-27 04:12] LABS: BASOPHILS ABSOLUTE AUTO 0.01 K/mm3 (0.00-0.23); BASOPHILS PERCENT AUTO 0 % (0-2); EOSINOPHILS PERCENT AUTO 0 % (0-6); Hematocrit 26.7 % (33.0-51.0); Hemoglobin 7.5 g/dL (11.5-16.0); IMMATURE GRAN ABSOLUTE AUTO 0.03 K/mm3 (0.00-0.10); IMMATURE GRAN PERCENT AUTO 0 % (0-1); LYMPHOCYTES ABSOLUTE AUTO 1.29 K/mm3 (0.84-5.20); LYMPHOCYTES PERCENT AUTO 16 % (21-46); MONOCYTES PERCENT AUTO 9 % (4-13); Mean Corpuscular HGB 19.9 pg (26.0-34.0); Mean Corpuscular HGB Conc 28.1 g/dL (31.5-36.5); Mean Corpuscular Volume 71 fL (80-100); NEUTROPHILS ABSOLUTE AUTO 5.92 K/mm3 (1.96-9.15); NEUTROPHILS PERCENT AUTO 75 % (41-73); Platelet Count 306 K/mm3 (150-400); RDW Coefficient Variation 20.8 % (11.7-14.2); RDW Standard Deviation 52.5 fL (35.1-46.3); Red Blood Cell Count 3.77 M/mm3 (3.80-5.20); White Blood Cell Count 7.95 K/mm3 (4.00-11.30)
[2020-06-27 04:20] LABS: Mean Platelet Volume 11.8 fL (9.1-12.4)
[2020-06-27 04:29] LABS: Alanine Aminotransfer (ALT/SGP 17 U/L (12-78); Albumin, Blood 3.2 g/dL (3.4-5.0); Albumin/Globulin Ratio 1.1 (0.8-1.8); Alk Phos 72 U/L (50-136); Anion Gap 3 mmol/L (6-16); Aspartate Aminotrans (AST/SGOT 10 U/L (12-37); Bilirubin, Total 0.7 mg/dL (0.1-1.0); Blood Urea Nitrogen 14 mg/dL (8-24); Bun/Creatinine Ratio 17.5 (12.0-20.0); CO2, Blood 31 mmol/L (21-32); Calcium, Blood 8.9 mg/dL (8.5-10.1); Chloride, Blood 108 mmol/L (98-108); Glomerular Filtration Rate >60 (60-); Glucose, Blood 92 mg/dL (70-99); Potassium, Blood 3.6 mmol/L (3.5-5.5); Sodium, Blood 142 mmol/L (136-145); Total Protein, Blood 6.2 g/dL (6.4-8.2)
--- NOTE | 2020-06-27 07:53 | NUR ---
SHIFT SUMMARY PT A&O X 4; DENIES CHEST PAIN; VSS; NSR NOTED ON TELE; O2 SATS >93 ON RA; INDEPENDENT TO BSC; CALLS APPROPRIATELY; SLEPT SEVERAL HOURS; NO ACUTE DISTRESS NOTED; CALL LIGHT IN REACH; BED IN LOWEST POSITION; REPORT GIVEN TO DAY SHIFT RN.
--- NOTE | 2020-06-27 10:02 | NUR ---
echocardiogram completed
--- NOTE | 2020-06-27 13:31 | NUR ---
Report given to med RN. No s/s of acute distress at this time. Pt denies any current needs or questions at this time. Awaiting medical floor room to be cleaned. Will xfer via w/c w/o tele. Cont to monitor until xfer is complete.
--- NOTE | 2020-06-27 15:30 | NUR ---
PT CONTINUES A&O T/OUT SHIFT, RESP EVEN AND UNLABORED, HRR. PT REPORTS IMPROVED OVERALL FEELING, HAS BEEN INDEPENDENT IN ROOM, AND USING CALL LIGHT APPROPRIATELY. PT ADMISSION STATUS CHANGED TO MEDICAL, PT RECEIVES ROOM AND IS TRANSFERRED TO MEDICAL DEPT.
--- NOTE | 2020-06-27 17:09 | NUR ---
SHIFT SUMMARY PATIENT TO THE MEDICAL FLOOR FROM PCU LATE AFTERNOON. PATIENT ALERT, ORIENTED, INDEPENDENT IN THE ROOM UPON ARRIVAL. PATIENT DENIES PAIN. PATIENT MADE COMFORTABLE AND PROVIDED WITH ICE WATER. PATIENT DENIES FURTHER NEEDS THIS EVENING.
[2020-06-28 05:27] LABS: BASOPHILS ABSOLUTE AUTO 0.01 K/mm3 (0.00-0.23); BASOPHILS PERCENT AUTO 0 % (0-2); EOSINOPHILS PERCENT AUTO 0 % (0-6); Hematocrit 30.6 % (33.0-51.0); Hemoglobin 8.5 g/dL (11.5-16.0); IMMATURE GRAN ABSOLUTE AUTO 0.05 K/mm3 (0.00-0.10); IMMATURE GRAN PERCENT AUTO 1 % (0-1); LYMPHOCYTES ABSOLUTE AUTO 1.12 K/mm3 (0.84-5.20); LYMPHOCYTES PERCENT AUTO 16 % (21-46); MONOCYTES ABSOLUTE AUTO 0.72 K/mm3 (0.16-1.47); MONOCYTES PERCENT AUTO 10 % (4-13); Mean Corpuscular HGB 19.6 pg (26.0-34.0); Mean Corpuscular HGB Conc 27.8 g/dL (31.5-36.5); Mean Corpuscular Volume 71 fL (80-100); NEUTROPHILS ABSOLUTE AUTO 5.15 K/mm3 (1.96-9.15); NEUTROPHILS PERCENT AUTO 73 % (41-73); Platelet Count 298 K/mm3 (150-400); RDW Coefficient Variation 22.1 % (11.7-14.2); RDW Standard Deviation 54.1 fL (35.1-46.3); Red Blood Cell Count 4.34 M/mm3 (3.80-5.20); White Blood Cell Count 7.05 K/mm3 (4.00-11.30)
[2020-06-28 05:42] LABS: Alanine Aminotransfer (ALT/SGP 19 U/L (12-78); Albumin, Blood 3.2 g/dL (3.4-5.0); Alk Phos 76 U/L (50-136); Anion Gap 5 mmol/L (6-16); Aspartate Aminotrans (AST/SGOT 12 U/L (12-37); Bilirubin, Total 0.5 mg/dL (0.1-1.0); Blood Urea Nitrogen 16 mg/dL (8-24); Bun/Creatinine Ratio 19.6 (12.0-20.0); CO2, Blood 31 mmol/L (21-32); Chloride, Blood 105 mmol/L (98-108); Creatinine, Blood 0.82 mg/dL (0.40-1.00); Globulin, Blood 3.2 g/dL (2.2-4.0); Glomerular Filtration Rate >60 (60-); Glucose, Blood 92 mg/dL (70-99); Potassium, Blood 3.5 mmol/L (3.5-5.5); Sodium, Blood 141 mmol/L (136-145); Total Protein, Blood 6.4 g/dL (6.4-8.2)
--- NOTE | 2020-06-28 05:56 | NUR ---
SHIFT SUMMARY: AFEB. 02 92% ON RA. REPORTS MILD SOB W/EXERTION. EXPIRATORY WHEEZE AUSCULTATED. RESPS EVEN, NON-LABORED. DENIES PAIN. UP INDEPENDENTLY IN ROOM. ALEJANDRO ACTIVITY WELL. HGB 8.5 THIS AM. PT SLEPT WELL. NO ACUTE CHAGES. WCTM.
[2020-06-28] MEDS ORDERED: FERSU300 PO (13:39)
[2020-06-28] MEDS ORDERED: DOCU100 PO (13:39)
[2020-06-28] MEDS ORDERED: FURO20 PO (13:40)
[2020-06-28] MEDS ORDERED: MIRALAX17 GM PO (13:41)
[2020-06-28] MEDS ORDERED: POTA10T PO (13:41)
--- NOTE | 2020-06-28 14:34 | NUR ---
IV DC'D WNL. PT WAS GIVEN INSTRUCTIONS INCLUDING FOLLOW UP APPOINTMENTS AND NEW MEDICATIONS. TRANSFERRED OUT VIA WHEEL CHAIR BY HOSPITAL STAFF. DENIED FURTHER QUESTIONS OR CONCERNS.
== END 2020-06-28 14:20 | disposition home or self-care (01) | DRG 811 ==
LOC: ER 07:58 → PCU 12:21 → MEDS 06-27 15:39
PROVIDERS: Emergency Medicine; ADMIT Internal Medicine
PROC: 30233N1 Transfusion of Nonautologous Red Blood Cells into Peripheral Vein, Percutaneous Approach (ICD-10-PCS; principal; 2020-06-26)
PROC: 8E0ZXY6 Isolation (ICD-10-PCS; 2020-06-26)
PROC: 3E0234Z Introduction of Serum, Toxoid and Vaccine into Muscle, Percutaneous Approach (ICD-10-PCS; 2020-06-26)
DX: D50.9 Iron deficiency anemia, unspecified (principal); J96.01 Acute respiratory failure with hypoxia; K44.9 Diaphragmatic hernia without obstruction or gangrene; I50.9 Heart failure, unspecified; Z23 Encounter for immunization; G47.00 Insomnia, unspecified; F32.9 Major depressive disorder, single episode, unspecified; F43.10 Post-traumatic stress disorder, unspecified; Z66 Do not resuscitate; Z87.891 Personal history of nicotine dependence; Z95.1 Presence of aortocoronary bypass graft
CPT/HCPCS: 36415; 36430; 71046; 80053; 80061; 82272; 82728; 83036; 83540; 83550; 83880; 84484; 85014; 85018; 85025; 86850; 86900; 86901; 86923; 93005; 93010; 93306; 94762; 99285-25; A9270; C9113; G0008; J1940; J7030; P9016; Q2038

== ENCOUNTER → 2020-08-08 | Outpatient (CLI) | payer OTHER ==
[~2020-08-08] MED LIST changes: +ARIPIPRAZOLE15 MG PO; +DOCU100 PO; +FERSU300 PO; +FURO20 PO; +MIRALAX17 GM PO; +POTA10T PO
== END | disposition home or self-care (01) ==
LOC: LAB 11:01 → LAB SHORT 11:01
DX: N30.00 Acute cystitis without hematuria (principal)
CPT/HCPCS: 87086

== ENCOUNTER 2023-01-20 02:47 | Emergency (ER) | payer OTHER ==
[~2023-01-20] VITALS: Ht 162.6 cm; Wt 104.3 kg
[2023-01-20 03:16] VITALS: BP 142/48
[2023-01-20] MEDS ORDERED: Amoxicillin500 MG (03:21)
[2023-01-20] MEDS ORDERED: CLAR500 (03:21)
[2023-01-20 03:52] LABS: Source, Urine Clean Catch
[2023-01-20 03:57] LABS: BASOPHILS ABSOLUTE AUTO 0.04 K/mm3 (0.00-0.23); BASOPHILS PERCENT AUTO 0 % (0-2); EOSINOPHILS ABSOLUTE AUTO 0.03 K/mm3 (0.00-0.68); EOSINOPHILS PERCENT AUTO 0 % (0-6); Hematocrit 28.5 % (33.0-51.0); Hemoglobin 8.2 g/dL (11.5-16.0); IMMATURE GRAN ABSOLUTE AUTO 0.06 K/mm3 (0.00-0.10); IMMATURE GRAN PERCENT AUTO 1 % (0-1); LYMPHOCYTES ABSOLUTE AUTO 1.12 K/mm3 (0.84-5.20); LYMPHOCYTES PERCENT AUTO 9 % (21-46); MONOCYTES ABSOLUTE AUTO 1.16 K/mm3 (0.16-1.47); MONOCYTES PERCENT AUTO 10 % (4-13); Mean Corpuscular HGB 26.1 pg (26.0-34.0); Mean Corpuscular HGB Conc 28.8 g/dL (31.5-36.5); Mean Corpuscular Volume 91 fL (80-100); Mean Platelet Volume 12.1 fL (9.1-12.4); NEUTROPHILS ABSOLUTE AUTO 9.45 K/mm3 (1.96-9.15); NEUTROPHILS PERCENT AUTO 80 % (41-73); Platelet Count 263 K/mm3 (150-400); RDW Coefficient Variation 16.7 % (11.7-14.2); Red Blood Cell Count 3.14 M/mm3 (3.80-5.20); White Blood Cell Count 11.86 K/mm3 (4.00-11.30)
[2023-01-20 04:00] LABS: Bilirubin, Urine Neg (Neg); Blood, Urine Neg (Neg); Glucose Qualitative, Urine Neg (Neg); Ketones, Urine Neg (Neg); Leukocyte Esterase, Urine Neg (Neg); Nitrite, Urine Neg (Neg); Protein, Urine 1+ (Neg); Urobilinogen, Urine NORM (Normal)
[2023-01-20 04:20] LABS: Appearance, Urine Clear (Clear); Color, Urine Yellow (P-Yellow)
[2023-01-20 04:22] LABS: Albumin/Globulin Ratio 0.9 (0.8-1.8); Bilirubin, Total 0.3 mg/dL (0.1-1.0); Bun/Creatinine Ratio 14.3 (12.0-20.0); Calcium, Blood 8.6 mg/dL (8.5-10.1); Creatinine, Blood 0.77 mg/dL (0.40-1.00); Globulin, Blood 3.2 g/dL (2.2-4.0); Potassium, Blood 4.2 mmol/L (3.5-5.5); Total Protein, Blood 6.2 g/dL (6.4-8.2)
[2023-01-21] MEDS ORDERED: METR500 PO (13:22)
[2023-01-21] MEDS ORDERED: VISBIOME 112.51 EACH PO (13:22)
[2023-01-21] MEDS ORDERED: CIPR500 PO (13:22)
== END 2023-01-20 05:12 | disposition home or self-care (01) ==
LOC: ER 02:47
PROVIDERS: Student in an Organized Health Care Education/Training Program
DX: Z53.21 Procedure and treatment not carried out due to patient leaving prior to being seen by health care provider (principal)
CPT/HCPCS: 80053; 83690; 85025; 99284

== ENCOUNTER 2023-01-20 15:24 | Observation (INO) | payer OTHER ==
[~2023-01-20] VITALS: Ht 162.6 cm; Wt 105.4 kg
[~2023-01-20 15:24] MED LIST changes: +Amoxicillin500 MG; +CLAR500
[2023-01-20 16:03] LABS: Source, Urine Clean Catch
[2023-01-20 16:09] LABS: BASOPHILS ABSOLUTE AUTO 0.02 K/mm3 (0.00-0.23); BASOPHILS PERCENT AUTO 0 % (0-2); EOSINOPHILS ABSOLUTE AUTO 0.03 K/mm3 (0.00-0.68); EOSINOPHILS PERCENT AUTO 0 % (0-6); Hematocrit 27.6 % (33.0-51.0); IMMATURE GRAN ABSOLUTE AUTO 0.06 K/mm3 (0.00-0.10); IMMATURE GRAN PERCENT AUTO 0 % (0-1); LYMPHOCYTES ABSOLUTE AUTO 1.16 K/mm3 (0.84-5.20); LYMPHOCYTES PERCENT AUTO 8 % (21-46); MONOCYTES ABSOLUTE AUTO 1.26 K/mm3 (0.16-1.47); MONOCYTES PERCENT AUTO 8 % (4-13); Mean Corpuscular HGB 26.1 pg (26.0-34.0); Mean Corpuscular Volume 90 fL (80-100); Mean Platelet Volume 12.3 fL (9.1-12.4); NEUTROPHILS ABSOLUTE AUTO 12.62 K/mm3 (1.96-9.15); NEUTROPHILS PERCENT AUTO 83 % (41-73); Platelet Count 249 K/mm3 (150-400); RDW Coefficient Variation 16.4 % (11.7-14.2); RDW Standard Deviation 53.5 fL (35.1-46.3); Red Blood Cell Count 3.06 M/mm3 (3.80-5.20); White Blood Cell Count 15.15 K/mm3 (4.00-11.30)
[2023-01-20 16:15] LABS: Appearance, Urine Clear (Clear); Bilirubin, Urine Neg (Neg); Blood, Urine Neg (Neg); Color, Urine Yellow (P-Yellow); Glucose Qualitative, Urine Neg (Neg); Ketones, Urine Neg (Neg); Leukocyte Esterase, Urine Neg (Neg); Nitrite, Urine Neg (Neg); Protein, Urine 1+ (Neg); Urobilinogen, Urine NORM (Normal)
[2023-01-20 16:29] LABS: Albumin, Blood 2.8 g/dL (3.4-5.0); Albumin/Globulin Ratio 0.8 (0.8-1.8); Bilirubin, Total 0.2 mg/dL (0.1-1.0); Bun/Creatinine Ratio 16.9 (12.0-20.0); Calcium, Blood 8.5 mg/dL (8.5-10.1); Creatinine, Blood 0.71 mg/dL (0.40-1.00); Globulin, Blood 3.4 g/dL (2.2-4.0); Potassium, Blood 4.1 mmol/L (3.5-5.5); Total Protein, Blood 6.2 g/dL (6.4-8.2)
[2023-01-20 17:56] LABS: International Normalized Ratio 1.05
[2023-01-20 21:29] LABS: Percent Saturation 4.1 % (15.0-50.0)
[2023-01-20 22:42] VITALS: BP 132/50
[2023-01-21 03:32] VITALS: BP 127/50
[2023-01-21 04:13] LABS: BASOPHILS ABSOLUTE AUTO 0.02 K/mm3 (0.00-0.23); BASOPHILS PERCENT AUTO 0 % (0-2); EOSINOPHILS ABSOLUTE AUTO 0.04 K/mm3 (0.00-0.68); EOSINOPHILS PERCENT AUTO 1 % (0-6); Hematocrit 25.3 % (33.0-51.0); Hemoglobin 7.3 g/dL (11.5-16.0); IMMATURE GRAN ABSOLUTE AUTO 0.03 K/mm3 (0.00-0.10); IMMATURE GRAN PERCENT AUTO 0 % (0-1); LYMPHOCYTES ABSOLUTE AUTO 0.89 K/mm3 (0.84-5.20); LYMPHOCYTES PERCENT AUTO 12 % (21-46); MONOCYTES ABSOLUTE AUTO 0.76 K/mm3 (0.16-1.47); MONOCYTES PERCENT AUTO 10 % (4-13); Mean Corpuscular HGB 26.4 pg (26.0-34.0); Mean Corpuscular HGB Conc 28.9 g/dL (31.5-36.5); Mean Corpuscular Volume 91 fL (80-100); Mean Platelet Volume 11.8 fL (9.1-12.4); NEUTROPHILS ABSOLUTE AUTO 5.74 K/mm3 (1.96-9.15); NEUTROPHILS PERCENT AUTO 77 % (41-73); Platelet Count 204 K/mm3 (150-400); RDW Coefficient Variation 16.3 % (11.7-14.2); RDW Standard Deviation 54.6 fL (35.1-46.3); Red Blood Cell Count 2.77 M/mm3 (3.80-5.20); White Blood Cell Count 7.48 K/mm3 (4.00-11.30)
[2023-01-21 04:36] LABS: Albumin, Blood 2.4 g/dL (3.4-5.0); Albumin/Globulin Ratio 0.8 (0.8-1.8); Bilirubin, Total 0.2 mg/dL (0.1-1.0); Bun/Creatinine Ratio 19.6 (12.0-20.0); Calcium, Blood 8.1 mg/dL (8.5-10.1); Creatinine, Blood 0.77 mg/dL (0.40-1.00); Magnesium, Blood 2.4 mg/dL (1.6-2.4); Potassium, Blood 4.1 mmol/L (3.5-5.5); Total Protein, Blood 5.4 g/dL (6.4-8.2)
[2023-01-21 07:37] VITALS: BP 133/48
--- NOTE | 2023-01-21 08:11 | NUR ---
SUMMARY PT ADMITTED THIS SHIFT. REPORTED INITIALLY NO HX CHF WITH HX UNSPECIFIED REESP FAILURE, BUT WITH FURTHER DISCUSSION AND MILD APPEARANCE OF INCREASED WOB WITH DENY OF SOB PT DID NOT FULLY UNDERSTAND THAT CHF WAS CONGESTIVE FAILURE.PT ADMITTED TO HX CONGESTIVE FAILURE, BUT STATES WAS TOLD TO TAKE DIURETICS "YEARS AGO" BUT TOLE PHARM SHE WOULD NOT TAKE THEM AND REPORTS SHE WAS DRINKING LEMON WATER INSTEAD? CHARGE AND MSELF SPOKE WITH HOSPITALIST AND DECREASED IV TO 75 ML/HR AND ORDERED NEBS FORT WHEEZING,IN ADDITION GAVE LASIX 20 MG IV PER NEW ORDER WITH PT PUTTING OUT QUICK RETURN OF 200 ML LLIGHTER COLOR.PT REPORTED FEELILNG BETTER AFTER IN BED AND APPROACHED PER RT-PT REFUSED NEB. I DISCUSSED WITH PT BENEFITS AND RISKS OF REFUSING. PT AGREES OT TAKE AFTER LASIX IF INCREASED WOB.PT REQUESTED WE CALL [facility] TODAY FOR HER CORRECT LIST OF MEDS AND DOSES.
[2023-01-21 12:02] LABS: Hematocrit 28.6 % (33.0-51.0); Hemoglobin 8.3 g/dL (11.5-16.0)
--- NOTE | 2023-01-21 12:49 | NUR ---
IV INFILTRATED, PT ADAMANT ON NOT HAVING ANOTHER IV PLACED AT THIS TIME. SPOKE WITH HEIDI REILLY TO LEAVE OUT AT THIS TIME.
[2023-01-21] MEDS ORDERED: METR500 PO ×2 (13:22)
[2023-01-21] MEDS ORDERED: CIPR500 PO ×2 (13:22)
[2023-01-21] MEDS ORDERED: VISBIOME 112.51 EACH PO ×2 (13:22)
--- NOTE | 2023-01-21 13:45 | NUR ---
dishcarge acute diverticultis PT HAS DENIED PAIN DURING SHIFT, TOLERATED PO INTAKE WELL. NO NAUSEA. ALL INSTRUCTIONS GONE OVER WITH PATIENT, NO FURTHER QUESTIONS AT THIS TIME. [facility] SENT TO [place] PER PT REQUEST. ALL BELONGINGS WITH PATIENT.
== END 2023-01-21 13:43 | disposition home or self-care (01) ==
LOC: ER 15:24 → SURS 15:25 → ER 21:42 → SURS 21:42
PROVIDERS: Nurse Practitioner Acute Care; Student in an Organized Health Care Education/Training Program; ADMIT Student in an Organized Health Care Education/Training Program
DX: A41.9 Sepsis, unspecified organism (principal); K57.32 Diverticulitis of large intestine without perforation or abscess without bleeding; J96.01 Acute respiratory failure with hypoxia; D50.9 Iron deficiency anemia, unspecified; F32.9 Major depressive disorder, single episode, unspecified; K21.9 Gastro-esophageal reflux disease without esophagitis; E78.5 Hyperlipidemia, unspecified; Z87.891 Personal history of nicotine dependence; Z79.899 Other long term (current) drug therapy
CPT/HCPCS: 36415; 74177; 80053; 82728; 83540; 83550; 83605; 83690; 83735; 85014; 85018; 85025; 85610; 87040; 94760; 96361; 96365-59; 96375; 99285-25; A9270; G0378; J0295; J0744; J1885; J1940; J2270; J7030; Q9967

== ENCOUNTER 2023-01-22 19:27 | Emergency (ER) | payer OTHER ==
[~2023-01-22] VITALS: Ht 162.6 cm; Wt 103.9 kg
[~2023-01-22 19:27] MED LIST changes: +CIPR500 PO; +METR500 PO; +VISBIOME 112.51 EACH PO
[2023-01-22 20:17] LABS: BASOPHILS ABSOLUTE AUTO 0.04 K/mm3 (0.00-0.23); BASOPHILS PERCENT AUTO 1 % (0-2); EOSINOPHILS ABSOLUTE AUTO 0.08 K/mm3 (0.00-0.68); EOSINOPHILS PERCENT AUTO 1 % (0-6); Hematocrit 28.9 % (33.0-51.0); Hemoglobin 8.2 g/dL (11.5-16.0); IMMATURE GRAN ABSOLUTE AUTO 0.03 K/mm3 (0.00-0.10); IMMATURE GRAN PERCENT AUTO 0 % (0-1); LYMPHOCYTES ABSOLUTE AUTO 0.82 K/mm3 (0.84-5.20); LYMPHOCYTES PERCENT AUTO 11 % (21-46); MONOCYTES ABSOLUTE AUTO 0.86 K/mm3 (0.16-1.47); MONOCYTES PERCENT AUTO 11 % (4-13); Mean Corpuscular HGB 25.6 pg (26.0-34.0); Mean Corpuscular HGB Conc 28.4 g/dL (31.5-36.5); Mean Corpuscular Volume 90 fL (80-100); NEUTROPHILS ABSOLUTE AUTO 5.85 K/mm3 (1.96-9.15); NEUTROPHILS PERCENT AUTO 76 % (41-73); Platelet Count 291 K/mm3 (150-400); RDW Coefficient Variation 15.4 % (11.7-14.2); White Blood Cell Count 7.68 K/mm3 (4.00-11.30)
[2023-01-22 20:46] LABS: Albumin/Globulin Ratio 0.9 (0.8-1.8); Bilirubin, Total 0.2 mg/dL (0.1-1.0); Bun/Creatinine Ratio 21.6 (12.0-20.0); Calcium, Blood 8.5 mg/dL (8.5-10.1); Creatinine, Blood 0.7 mg/dL (0.40-1.00); Globulin, Blood 3.3 g/dL (2.2-4.0); Potassium, Blood 4.4 mmol/L (3.5-5.5); Total Protein, Blood 6.3 g/dL (6.4-8.2)
[2023-01-23] MEDS ORDERED: AMOCLA875 PO (00:28)
[2023-01-23 00:40] VITALS: BP 131/65
== END 2023-01-23 00:41 | disposition home or self-care (01) ==
LOC: ER 19:27
PROVIDERS: Student in an Organized Health Care Education/Training Program
DX: R06.02 Shortness of breath (principal); Z79.899 Other long term (current) drug therapy; Z87.891 Personal history of nicotine dependence
CPT/HCPCS: 71046; 80053; 83880; 85025; 93005; 93010; 94640; 94664; 96374; 99285-25; A9270; J1940

== ENCOUNTER → 2023-02-09 | Outpatient (CLI) | payer OTHER ==
[~2023-02-09] MED LIST changes: +AMOCLA875 PO
[2023-02-09 10:02] LABS: BASOPHILS ABSOLUTE AUTO 0.05 K/mm3 (0.00-0.23); BASOPHILS PERCENT AUTO 1 % (0-2); EOSINOPHILS ABSOLUTE AUTO 0.13 K/mm3 (0.00-0.68); EOSINOPHILS PERCENT AUTO 1 % (0-6); Hematocrit 29.5 % (33.0-51.0); Hemoglobin 8.2 g/dL (11.5-16.0); IMMATURE GRAN ABSOLUTE AUTO 0.06 K/mm3 (0.00-0.10); IMMATURE GRAN PERCENT AUTO 1 % (0-1); LYMPHOCYTES PERCENT AUTO 15 % (21-46); MONOCYTES ABSOLUTE AUTO 0.77 K/mm3 (0.16-1.47); MONOCYTES PERCENT AUTO 9 % (4-13); Mean Corpuscular HGB Conc 27.8 g/dL (31.5-36.5); Mean Corpuscular Volume 86 fL (80-100); Mean Platelet Volume 12.3 fL (9.1-12.4); NEUTROPHILS ABSOLUTE AUTO 6.67 K/mm3 (1.96-9.15); NEUTROPHILS PERCENT AUTO 74 % (41-73); Platelet Count 296 K/mm3 (150-400); RDW Standard Deviation 55.1 fL (35.1-46.3); Red Blood Cell Count 3.42 M/mm3 (3.80-5.20); White Blood Cell Count 8.98 K/mm3 (4.00-11.30)
[2023-02-09 10:09] LABS: Bun/Creatinine Ratio 18.4 (12.0-20.0); Calcium, Blood 8.7 mg/dL (8.5-10.1); Creatinine, Blood 0.76 mg/dL (0.40-1.00); Potassium, Blood 4.2 mmol/L (3.5-5.5)
== END | disposition home or self-care (01) ==
LOC: LAB 09:58 → LAB SHORT 09:58
PROVIDERS: Physician Assistant Surgical
DX: R06.02 Shortness of breath (principal)
CPT/HCPCS: 80048; 83880; 84484; 85025; 85379

== ENCOUNTER 2023-02-19 08:05 | Emergency (ER) | payer OTHER ==
[~2023-02-19] VITALS: Ht 162.6 cm; Wt 106.6 kg
[2023-02-19] MEDS ORDERED: Ventolin/Prove6.7 GM INH (08:25)
[2023-02-19] MEDS ORDERED: TRAZ150T57 PO (08:25)
[2023-02-19] MEDS ORDERED: FUROSEMIDE40 MG PO (08:25)
[2023-02-19 09:14] LABS: BASOPHILS ABSOLUTE AUTO 0.06 K/mm3 (0.00-0.23); BASOPHILS PERCENT AUTO 1 % (0-2); EOSINOPHILS PERCENT AUTO 1 % (0-6); Hematocrit 26.5 % (33.0-51.0); Hemoglobin 7.3 g/dL (11.5-16.0); IMMATURE GRAN ABSOLUTE AUTO 0.04 K/mm3 (0.00-0.10); IMMATURE GRAN PERCENT AUTO 1 % (0-1); LYMPHOCYTES ABSOLUTE AUTO 1.33 K/mm3 (0.84-5.20); LYMPHOCYTES PERCENT AUTO 16 % (21-46); MONOCYTES ABSOLUTE AUTO 0.72 K/mm3 (0.16-1.47); MONOCYTES PERCENT AUTO 9 % (4-13); Mean Corpuscular HGB 22.3 pg (26.0-34.0); Mean Corpuscular HGB Conc 27.5 g/dL (31.5-36.5); Mean Corpuscular Volume 81 fL (80-100); Mean Platelet Volume 12.4 fL (9.1-12.4); NEUTROPHILS ABSOLUTE AUTO 6.11 K/mm3 (1.96-9.15); NEUTROPHILS PERCENT AUTO 73 % (41-73); Platelet Count 340 K/mm3 (150-400); RDW Coefficient Variation 16.8 % (11.7-14.2); RDW Standard Deviation 49.3 fL (35.1-46.3); Red Blood Cell Count 3.28 M/mm3 (3.80-5.20); White Blood Cell Count 8.36 K/mm3 (4.00-11.30)
[2023-02-19 09:38] LABS: Albumin, Blood 3.1 g/dL (3.4-5.0); Bilirubin, Total 0.2 mg/dL (0.1-1.0); Calcium, Blood 8.4 mg/dL (8.5-10.1); Creatinine, Blood 0.59 mg/dL (0.40-1.00); Globulin, Blood 3.2 g/dL (2.2-4.0); Potassium, Blood 3.9 mmol/L (3.5-5.5); Total Protein, Blood 6.3 g/dL (6.4-8.2)
[2023-02-19 09:53] LABS: Prothrombin Time Results 10.5 Sec (9.7-11.5)
[2023-02-19] MEDS ORDERED: ALBU90OI INH (12:38)
[2023-02-19] MEDS ORDERED: PRED20 PO (12:38)
[2023-02-19] MEDS ORDERED: AZIT250 PO (12:38)
[2023-02-19 13:17] VITALS: BP 126/90
== END 2023-02-19 13:20 | disposition home or self-care (01) ==
LOC: ER 08:05
PROVIDERS: Student in an Organized Health Care Education/Training Program
DX: J44.1 Chronic obstructive pulmonary disease with (acute) exacerbation (principal); D64.9 Anemia, unspecified; I10 Essential (primary) hypertension; Z79.899 Other long term (current) drug therapy; Z87.891 Personal history of nicotine dependence
CPT/HCPCS: 71046; 80053; 83880; 85025; 85610; 85730; 86850; 86900; 86901; 93005; 93010; 94644; 94664; 99284-25; A9270; J7512

== ENCOUNTER 2023-04-24 18:10 | Emergency (ER) | payer OTHER ==
[~2023-04-24] VITALS: Ht 162.6 cm; Wt 108.9 kg
[~2023-04-24 18:10] MED LIST changes: +FUROSEMIDE40 MG PO; +PRED20 PO; +Ventolin/Prove6.7 GM INH
[2023-04-24 20:11] LABS: BASOPHILS ABSOLUTE AUTO 0.03 K/mm3 (0.00-0.23); BASOPHILS PERCENT AUTO 0 % (0-2); EOSINOPHILS ABSOLUTE AUTO 0.21 K/mm3 (0.00-0.68); EOSINOPHILS PERCENT AUTO 2 % (0-6); Hematocrit 25.2 % (33.0-51.0); Hemoglobin 6.8 g/dL (11.5-16.0); IMMATURE GRAN ABSOLUTE AUTO 0.09 K/mm3 (0.00-0.10); IMMATURE GRAN PERCENT AUTO 1 % (0-1); LYMPHOCYTES ABSOLUTE AUTO 2.06 K/mm3 (0.84-5.20); LYMPHOCYTES PERCENT AUTO 21 % (21-46); MONOCYTES ABSOLUTE AUTO 0.82 K/mm3 (0.16-1.47); MONOCYTES PERCENT AUTO 8 % (4-13); Mean Corpuscular HGB 22.4 pg (26.0-34.0); Mean Corpuscular Volume 83 fL (80-100); Mean Platelet Volume 12.1 fL (9.1-12.4); NEUTROPHILS PERCENT AUTO 68 % (41-73); Platelet Count 288 K/mm3 (150-400); RDW Coefficient Variation 18.9 % (11.7-14.2); RDW Standard Deviation 57.2 fL (35.1-46.3); Red Blood Cell Count 3.04 M/mm3 (3.80-5.20); White Blood Cell Count 9.91 K/mm3 (4.00-11.30)
[2023-04-24 20:32] LABS: Albumin, Blood 3.1 g/dL (3.4-5.0); Albumin/Globulin Ratio 1.1 (0.8-1.8); Bilirubin, Total 0.2 mg/dL (0.1-1.0); Bun/Creatinine Ratio 18.5 (12.0-20.0); Calcium, Blood 8.6 mg/dL (8.5-10.1); Creatinine, Blood 0.7 mg/dL (0.40-1.00); Globulin, Blood 2.9 g/dL (2.2-4.0); Magnesium, Blood 2.4 mg/dL (1.6-2.4); Potassium, Blood 3.6 mmol/L (3.5-5.5)
[2023-04-25 00:45] VITALS: BP 114/84
[2023-04-25 01:06] LABS: Hematocrit 24.9 % (33.0-51.0)
[2023-04-25] MEDS ORDERED: AZIT250 PO (01:25)
[2023-04-25] MEDS ORDERED: PRED20 PO (01:25)
== END 2023-04-25 01:47 | disposition home or self-care (01) ==
LOC: ER 18:10
PROVIDERS: Emergency Medicine; Student in an Organized Health Care Education/Training Program
DX: J44.1 Chronic obstructive pulmonary disease with (acute) exacerbation (principal); D50.9 Iron deficiency anemia, unspecified; I10 Essential (primary) hypertension; F32.A Depression, unspecified; F43.10 Post-traumatic stress disorder, unspecified; G89.4 Chronic pain syndrome; Z79.899 Other long term (current) drug therapy; Z79.51 Long term (current) use of inhaled steroids; Z87.891 Personal history of nicotine dependence
CPT/HCPCS: 36430; 71046; 80053; 83735; 83880; 84484; 85014; 85018; 85025; 85379; 86850; 86900; 86901; 86923; 93005; 93010; 94644; 94645; 94664; 96374; 99285-25; A9270; J1885; J7030; J7512; P9016

== ENCOUNTER → 2024-09-16 | Outpatient (CLI) | payer OTHER ==
[~2024-09-16] MED LIST changes: +BISA5EC PO; +FERROUS SULFAT325 M3 PO; +FUROSEMIDE20 MG PO; +K-Dur10 MEQ; +LOSARTAN POTASS25 M2 PO; +METOPROLOL SUCC25 MG PO; +QUETIAPINE FUMA25 MG PO; +VENLAFAXINE HCL75 M1 PO
[2024-09-16 14:35] LABS: BASOPHILS ABSOLUTE AUTO 0.05 K/mm3 (0.00-0.23); BASOPHILS PERCENT AUTO 1 % (0-2); EOSINOPHILS ABSOLUTE AUTO 0.24 K/mm3 (0.00-0.68); EOSINOPHILS PERCENT AUTO 4 % (0-6); Hemoglobin 11.9 g/dL (11.5-16.0); IMMATURE GRAN ABSOLUTE AUTO 0.04 K/mm3 (0.00-0.10); IMMATURE GRAN PERCENT AUTO 1 % (0-1); LYMPHOCYTES ABSOLUTE AUTO 0.76 K/mm3 (0.84-5.20); LYMPHOCYTES PERCENT AUTO 12 % (21-46); MONOCYTES ABSOLUTE AUTO 0.46 K/mm3 (0.16-1.47); MONOCYTES PERCENT AUTO 7 % (4-13); Mean Corpuscular HGB 30.3 pg (26.0-34.0); Mean Corpuscular HGB Conc 31.3 g/dL (31.5-36.5); Mean Corpuscular Volume 97 fL (80-100); Mean Platelet Volume 12.6 fL (9.1-12.4); NEUTROPHILS ABSOLUTE AUTO 4.63 K/mm3 (1.96-9.15); NEUTROPHILS PERCENT AUTO 75 % (41-73); Platelet Count 193 K/mm3 (150-400); RDW Standard Deviation 57.8 fL (35.1-46.3); Red Blood Cell Count 3.93 M/mm3 (3.80-5.20); White Blood Cell Count 6.18 K/mm3 (4.00-11.30)
[2024-09-16 15:26] LABS: Alanine Aminotransfer (ALT/SGP 28 U/L (12-78); Albumin, Blood 3.5 g/dL (3.4-5.0); Albumin/Globulin Ratio 1.1 (0.8-1.8); Alk Phos 51 U/L (50-136); Anion Gap 8 mmol/L (3-11); Aspartate Aminotrans (AST/SGOT 18 U/L (12-37); Bilirubin, Total 0.3 mg/dL (0.1-1.0); Blood Urea Nitrogen 25 mg/dL (8-24); Bun/Creatinine Ratio 32.5 (12.0-20.0); CHOL/HDL RATIO 3.5; CO2, Blood 28 mmol/L (21-32); Calcium, Blood 8.8 mg/dL (8.5-10.1); Chloride, Blood 106 mmol/L (98-108); Cholesterol 173 mg/dL (50-200); Creatinine, Blood 0.77 mg/dL (0.40-1.00); Globulin, Blood 3.1 g/dL (2.2-4.0); Glomerular Filtration Rate 87 (60-); Glucose, Blood 89 mg/dL (70-99); HDL Cholesterol 50 mg/dL (>39); Low Density Lipoprotein Chol 100 mg/dL (0-110); Potassium, Blood 4.1 mmol/L (3.5-5.5); Sodium, Blood 138 mmol/L (136-145); Total Protein, Blood 6.6 g/dL (6.4-8.2); Triglycerides 114 mg/dL (30-160); Very Low Density Lipoprot Chol 22 mg/dL (6-32)
== END ==
LOC: LAB 13:02 → LAB SHORT 13:02
PROVIDERS: Student in an Organized Health Care Education/Training Program
DX: Z00.00 Encounter for general adult medical examination without abnormal findings (principal); I10 Essential (primary) hypertension; D50.8 Other iron deficiency anemias; E66.813 Obesity, class 3; Z68.41 Body mass index [BMI] 40.0-44.9, adult
CPT/HCPCS: 80053; 80061; 84443; 85025

== ENCOUNTER 2024-10-28 16:15 | Observation (INO) | payer OTHER ==
[~2024-10-28] VITALS: Ht 157.5 cm; Wt 107.9 kg
[2024-10-28 16:44] LABS: BASOPHILS ABSOLUTE AUTO 0.08 K/mm3 (0.00-0.23); BASOPHILS PERCENT AUTO 1 % (0-2); EOSINOPHILS ABSOLUTE AUTO 0.24 K/mm3 (0.00-0.68); EOSINOPHILS PERCENT AUTO 2 % (0-6); Hematocrit 44.4 % (33.0-51.0); Hemoglobin 14.6 g/dL (11.5-16.0); IMMATURE GRAN ABSOLUTE AUTO 0.03 K/mm3 (0.00-0.10); IMMATURE GRAN PERCENT AUTO 0 % (0-1); LYMPHOCYTES ABSOLUTE AUTO 1.35 K/mm3 (0.84-5.20); LYMPHOCYTES PERCENT AUTO 13 % (21-46); MONOCYTES ABSOLUTE AUTO 0.77 K/mm3 (0.16-1.47); MONOCYTES PERCENT AUTO 8 % (4-13); Mean Corpuscular HGB Conc 32.9 g/dL (31.5-36.5); Mean Corpuscular Volume 93 fL (80-100); NEUTROPHILS ABSOLUTE AUTO 7.70 K/mm3 (1.96-9.15); NEUTROPHILS PERCENT AUTO 76 % (41-73); NRBC ABSOLUTE 0.00 K/mm3 (0.00-0.02); NRBC Auto 0.0 /100 WBC (0.0-0.2); Platelet Count 220 K/mm3 (150-400); RDW Coefficient Variation 14.8 % (11.7-14.2); RDW Standard Deviation 51.1 fL (35.1-46.3)
[2024-10-28 17:06] LABS: Alanine Aminotransfer (ALT/SGP 30.0 U/L (12-78); Albumin, Blood 3.8 g/dL (3.4-5.0); Albumin/Globulin Ratio 1.2 (0.8-1.8); Anion Gap 3.0 mmol/L (3-11); Aspartate Aminotrans (AST/SGOT 24.0 U/L (12-37); Bilirubin, Total 0.3 mg/dL (0.1-1.0); Blood Urea Nitrogen 25.0 mg/dL (8-24); CO2, Blood 31.0 mmol/L (21-32); Calcium, Blood 9.7 mg/dL (8.5-10.1); Chloride, Blood 102.0 mmol/L (98-108); Creatinine, Blood 0.91 mg/dL (0.40-1.00); Globulin, Blood 3.3 g/dL (2.2-4.0); Glucose, Blood 98.0 mg/dL (70-99); Potassium, Blood 3.4 mmol/L (3.5-5.5); Sodium, Blood 133.0 mmol/L (136-145); Total Protein, Blood 7.1 g/dL (6.4-8.2)
[2024-10-28] MEDS ORDERED: Albuterol 2.5 MG/3 ML VIAL INH PRN (21:15)
[2024-10-28] MEDS ORDERED: Metoprolol Tartrate 1 MG/ML 5 ML VIAL IV PRN (21:20)
[2024-10-28] MEDS ORDERED: Ondansetron HCl 2 MG / ML 2ML Vial IV PRN (21:20)
[2024-10-28 22:22] LABS: Magnesium, Blood 2.5 mg/dL (1.6-2.4); Thyroid Stimulating Hormone 2.41 uIU/mL (0.360-4.800)
[2024-10-29] VITALS (7 sets, daily range): BP systolic 103–145; BP diastolic 41–93
[2024-10-29 00:55] LABS: U Amphetamine Screen Not Detected; U Barbituate Screen Not Detected; U Benzodiazapine Screen Not Detected; U Buprenorphine Screen Not Detected; U Cannabinoids Screen Not Detected; U Cocaine Screen Not Detected; U Methadone Screen Not Detected; U Methamphetamine Screen Not Detected; U Opiates Screen Not Detected; U Oxycodone Screen Not Detected; U Phencyclidine Screen Not Detected
--- NOTE | 2024-10-29 03:00 | NUR ---
ARRIVAL TO PCU NOTE: RECEIVED REPORT FROM WARP BLEACHING VAT TENDER ROBERT, PT SHORTLY ARRIVED TO PCU 18. A/Ox4 AND COOPERATIVE WITH CARE, ANSWERS QUESTIONS APPROPRIATELY. ABLE TO MAKE HER NEEDS KNOWN. CARDIAC, TELE SHOWS SB-SR 50-60'S WITH NO REPORTS OF CP, PRESSURE OR DIZZINESS. SBP STABLE AT THIS TIME. RESPIRATORY, MAINTAINS SPO2 >92% ON RA. ENDORSES SOME SOB WITH MODERATE EXERTION. GI/, ABLE TO AMBULATE TO BATHROOM WITH SBA. DENIES N/V/D OR ABD TENDERNESS. SKIN OVERALL C/D/I. 2xPIV WITH ONE IN LAC AND RIGHT WRIST. BOTH FLUSH WELL. BED IN LOWEST POSITION, CALL LIGHT WITHIN REACH
[2024-10-29 03:43] LABS: Hematocrit 41.2 % (33.0-51.0); Hemoglobin 13.4 g/dL (11.5-16.0); Mean Corpuscular HGB Conc 32.5 g/dL (31.5-36.5); Mean Corpuscular Volume 93 fL (80-100); NRBC ABSOLUTE 0.00 K/mm3 (0.00-0.02); NRBC Auto 0.0 /100 WBC (0.0-0.2); Platelet Count 189 K/mm3 (150-400); RDW Coefficient Variation 15.1 % (11.7-14.2); RDW Standard Deviation 51.8 fL (35.1-46.3)
[2024-10-29] MEDS ORDERED: BUDESONIDE-FO10.2 G2 INH (03:44)
[2024-10-29] MEDS ORDERED: FUROSEMIDE40 MG PO (03:44)
[2024-10-29] MEDS ORDERED: METO2.5 PO (03:45)
[2024-10-29] MEDS ORDERED: Cyclobenzaprine5 MG PO (03:46)
[2024-10-29] MEDS ORDERED: Potassium Chlo20 ME1 PO (03:47)
[2024-10-29] MEDS ORDERED: Naltrexone HCl50 MG PO (03:49)
--- NOTE | 2024-10-29 06:05 | NUR ---
SHIFT SUMMARY NO ACUTE CHANGED SINCE ARRIVAL TO PCU NOTE. SEE NOTE FOR DETAIL. CONTINUES TO DENY ANY CP, PRESSURE OR DIZZINESS. MAINTAINING SPO2 >92% ON RA. NO NEW ORDERS AT THIS TIME, WILL GIVE REPORT TO ONCOMING RN. ROSSY MANDUJANO OF THIS NOTE.
[2024-10-29 06:54] LABS: Magnesium, Blood 2.4 mg/dL (1.6-2.4)
[2024-10-29 06:57] LABS: Anion Gap 6.0 mmol/L (3-11); Blood Urea Nitrogen 27.0 mg/dL (8-24); CO2, Blood 32.0 mmol/L (21-32); Calcium, Blood 8.8 mg/dL (8.5-10.1); Chloride, Blood 104.0 mmol/L (98-108); Creatinine, Blood 0.84 mg/dL (0.40-1.00); Glucose, Blood 102.0 mg/dL (70-99); Potassium, Blood 3.6 mmol/L (3.5-5.5); Sodium, Blood 138.0 mmol/L (136-145)
--- NOTE | 2024-10-29 07:52 | NUR ---
AM NOTE PT ALERT, ORIENTED X4; COOPERATIVE WITH CARE. UP SBA IN ROOM. DENIES PAIN, CHEST PAIN/PRESSURE, SOB, NAUSEA, DIZZINESS AND NUMB/TINGLING. TELE SINUS XIAO 50'S, BP STABLE. EDEMA NOTED TO RLE. SPO2 >90% ON RA, BREATHING EVEN AND UNLABORED. ABD DISTENDED, SOFT, NONTENDER, REPORTS LAST BM YESTERDAY. OTHER VSS. CALL LIGHT WITHIN REACH.
[2024-10-29] MEDS ORDERED: Enoxaparin 40 MG/0.4 ML SYR SC SCH (09:00)
[2024-10-29] MEDS ORDERED: Trazodone HCl300 MG PO (12:15)
--- NOTE | 2024-10-29 18:25 | NUR ---
SHIFT SUMMARY NO ACUTE CHANGE NOTED T/O SHIFT. AWAITING ECHO RESULTS. VSS. CALL LIGHT WITH IN REACH.
--- NOTE | 2024-10-29 20:30 | NUR ---
ASSUMPTION OF CARE: ASSUMED CARE AT START OF SHIFT (1899). PT IS DOING WELL AND RESTING IN BED. PT IS A&OX4 AND FOLLOWING COMMANDS. PT DENIES ANY PAIN, CP, OR SOB AT THIS TIME. LUNG SOUNDS ARE CLEAR AND EQUAL BILATERALLY, SPO2 >94% ON RA. SINUS RYTHM WITH SBP:100'S MAP >65 HR: 50'S. IV: PERIPHERAL IN LAC. PT IS ABLE TO AMBULATE WITH MINIMAL ASSISTANCE. LINES AND CORDS PLACED OUT OF REACH. CALL LIGHT PLACED WITHIN REACH.
--- NOTE | 2024-10-29 23:00 | NUR ---
TRANSFER: PT TRANSFERRED FROM U 18 TO [facility] 337 @ [id number]. REPORT GIVEN TO MED RN. PT TRANSPORTED VIA WHEELCHAIR AND TRANSFERRED FROM WHEELCHAIR TO BED VIA STANDBY ASSIST. ALL PT BELONGINGS TANSFERED WITH PT TO [facility] FLOOR.
[2024-10-30 05:02] VITALS: BP 138/50
--- NOTE | 2024-10-30 06:37 | NUR ---
ASSUMED CARE AT 2245, HANDOFF REPORT RECEIVED FROM NILTON. PT A/Ox4, VSS ON RA. TELE MONITORING, SB TO NSR. PT REPORTS 8/10 LOW BACK PAIN, PRN TYLENOL EFFECTIVE. PT UP AD RONAN IN ROOM. DENIES SOB, NAUSEA OR OTHER COMPLAINTS. CALL LIGHT IN REACH, NO FURTHER NEEDS AT THIS TIME.
[2024-10-30 07:48] VITALS: BP 125/84
[2024-10-30] MEDS ORDERED: POTCHL20ER PO (12:11)
--- NOTE | 2024-10-30 16:23 | NUR ---
DISCHARGE PT AOX4, COOPERATIVE, ABLE TO MAKE NEEDS KNONW. PT WAS IND IN ROOM, ON ROOM AIR. ON TELE. PT DISCHARGED APPROX 1420. PRICING MANAGER DC'D IV WITHOUT COMPLICATION. THIS RN WENT OVER DC PAPERWORK WITH PT. NO NEW MEDS PRESCRIBED. PT WHEELED DOWN TO PT ENTRANCE BY PRICING MANAGER. BELONGINGS WENT WITH PT.
== END 2024-10-30 16:21 | disposition home or self-care (01) ==
LOC: ER 16:15 → PCU 16:16 → MEDS 10-29 22:54
PROVIDERS: Nurse Practitioner Acute Care; Student in an Organized Health Care Education/Training Program; ADMIT Student in an Organized Health Care Education/Training Program
DX: R07.89 Other chest pain (principal); I48.0 Paroxysmal atrial fibrillation; I11.0 Hypertensive heart disease with heart failure; I50.32 Chronic diastolic (congestive) heart failure; J44.9 Chronic obstructive pulmonary disease, unspecified; F43.10 Post-traumatic stress disorder, unspecified; F32.A Depression, unspecified; Z87.891 Personal history of nicotine dependence; Z79.899 Other long term (current) drug therapy; Z86.19 Personal history of other infectious and parasitic diseases
CPT/HCPCS: 36415; 71046; 80048; 80053; 83690; 83735; 83880; 84443; 84484; 85025; 85027; 93005; 93010; 93306; 94760; 94762; 96372; 99285-25; A9270; G0378; J1650

== ENCOUNTER → 2025-01-06 | Outpatient (CLI) | payer OTHER ==
[~2025-01-06] MED LIST changes: +BUDESONIDE-FO10.2 G2 INH; +Cyclobenzaprine5 MG PO; +METO2.5 PO; +Naltrexone HCl50 MG PO; +POTCHL20ER PO; +Potassium Chlo20 ME1 PO; +Trazodone HCl300 MG PO
[2025-01-06 19:07] LABS: Hematocrit 39.6 % (33.0-51.0); Hemoglobin 13.1 g/dL (11.5-16.0); Mean Corpuscular HGB Conc 33.1 g/dL (31.5-36.5); Mean Corpuscular Volume 94 fL (80-100); NRBC ABSOLUTE 0.00 K/mm3 (0.00-0.02); NRBC Auto 0.0 /100 WBC (0.0-0.2); Platelet Count 236 K/mm3 (150-400); RDW Coefficient Variation 14.5 % (11.7-14.2); RDW Standard Deviation 48.9 fL (35.1-46.3)
[2025-01-06 19:31] LABS: BASOPHILS ABSOLUTE MAN 0.00 K/mm3 (0.00-0.23); BASOPHILS PERCENT MAN 0 % (0-2); EOSINOPHILS ABSOLUTE MAN 0.77 K/mm3 (0.00-0.68); EOSINOPHILS PERCENT MAN 7 % (0-6); LYMPHOCYTES ABSOLUTE MAN 0.88 K/mm3 (0.84-5.20); LYMPHOCYTES PERCENT MAN 8 % (21-46); MONOCYTES ABSOLUTE MAN 0.55 K/mm3 (0.16-1.47); MONOCYTES PERCENT MAN 5 % (4-13); NEUTROPHILS ABSOLUTE MAN 8.88 K/mm3 (1.96-9.15); SEG NEUTROPHILS PERCENT MAN 80 % (41-73)
[2025-01-06 20:45] LABS: Alanine Aminotransfer (ALT/SGP 34.0 U/L (12-78); Albumin, Blood 3.7 g/dL (3.4-5.0); Albumin/Globulin Ratio 1.2 (0.8-1.8); Anion Gap 7.0 mmol/L (3-11); Aspartate Aminotrans (AST/SGOT 19.0 U/L (12-37); Bilirubin, Total 0.2 mg/dL (0.1-1.0); Blood Urea Nitrogen 21.0 mg/dL (8-24); CO2, Blood 31.0 mmol/L (21-32); Calcium, Blood 9.7 mg/dL (8.5-10.1); Chloride, Blood 103.0 mmol/L (98-108); Creatinine, Blood 0.84 mg/dL (0.40-1.00); Globulin, Blood 3.2 g/dL (2.2-4.0); Glucose, Blood 100.0 mg/dL (70-99); Potassium, Blood 3.2 mmol/L (3.5-5.5); Sodium, Blood 138.0 mmol/L (136-145); Total Protein, Blood 6.9 g/dL (6.4-8.2)
== END ==
LOC: LAB 16:50 → LAB SHORT 16:50
PROVIDERS: Nurse Practitioner
DX: R42 Dizziness and giddiness (principal)
CPT/HCPCS: 80053; 83036; 85007; 85027